=== PATIENT | male | born 1960 | race Caucasian/White ===

== ENCOUNTER 2022-09-13 10:45 | Emergency (ER) | payer SELFPAY ==
[2022-09-13] VITALS (20 sets, daily range): BP systolic 154–194; BP diastolic 95–122; PULSE 80–120; RESP 19–36; TEMP 36.7; O2SAT 94–100; BMI 27.1
--- NOTE | 2022-09-13 13:09 | DI.CT.S_ITS ---
PROCEDURE: CT HEAD/BRAIN WO CON INDICATIONS: fall, head injury, alcohol withdrawal TECHNIQUE: Noncontrast 4.5 mm thick angled axial sections acquired from the foramen magnum to the vertex, with coronal and sagittal reformats. For radiation dose reduction, the following was used: automated exposure control, adjustment of mA and/or kV according to patient size. COMPARISON: None. FINDINGS: Image quality: Excellent. CSF spaces: Basal cisterns are patent. No extra-axial fluid collections. The ventricles are symmetric in size and shape. Brain: No intracranial bleeds or masses. There is cerebral volume loss for age, with resultant ventricular and sulcal prominence. There are periventricular and deep white matter chronic small vessel ischemic changes. There is intracranial internal carotid artery atherosclerosis. Skull and face: Calvarium and visualized facial bones appear intact, without suspicious lesions. Sinuses: Visualized sinuses and mastoids are clear. IMPRESSION: No acute intracranial finding. Dictated by: Naseem Campbell M.D. on 09/13/2022 at 13:54 Approved by: Naseem Campbell M.D. on 09/13/2022 at 13:55
--- NOTE | 2022-09-13 13:14 | ED.ALCOHOL ---
HPI - Alcohol General Chief Complaint: Toxicology Problem Stated Complaint: alcohol detox, not eating Time Seen by Provider: 09/13/22 12:55 Source: patient Mode of arrival: Ambulatory History of Present Illness HPI narrative: 62-year-old male daily smoker with history of hypertension and significant alcohol abuse presents with a friend due to withdrawal type symptoms along with nausea, vomiting and not eating for the past few days. He states that he had historically been taking antihypertensive meds and other medications that he can not completely remember but missed a recent doctor's appointment and therefore has been off his meds for least a week. Started feeling poorly but is very nondescript about his symptoms and developed poor appetite and oral intake and even stops drinking. He states that he typically drinks a 5th of alcohol per day but has not had any in the past 2 days or so because he has been feeling so poorly. He continues to have mild headache, even fell once and struck the right side of his head, he does not remember the specifics of the injury, he does not know if he lost consciousness or not. He denies any blurred vision or trouble with speech. He denies chest pain or shortness of breath. He does have anxiety and agitation as well as some unexplained diaphoresis. He denies auditory or visual hallucinations. He denies tactile hallucinations. He has moderate resting tremor. He is gone through alcohol withdrawal in the past and most recently was in a detox facility about 1 year ago. He states he is never had seizures as a consequence of withdrawal Related Data Previous Rx's Medication Instructions Recorded chlordiazepoxide HCl 25 mg capsule See Rx Instructions .Route 09/13/22 .COMPLEX PRN alcohol withdrawal #32 caps lisinopril 10 mg tablet 10 mg PO DAILY #30 tabs 09/13/22 lisinopril 20 mg tablet 20 mg PO DAILY #30 tabs 09/13/22 metoprolol succinate 100 mg 100 mg PO BID #60 tabs 09/13/22 tablet,extended release 24 hr metoprolol succinate 50 mg 50 mg PO BID #60 tabs 09/13/22 tablet,extended release 24 hr Allergies Allergy/AdvReac Type Severity Reaction Status Date / Time No Known Drug Allergies Allergy Verified 09/13/22 11:32 Review of Systems Review of Systems Narrative: GENERAL: See HPI HEENT: Denies sinus pain, ear pain, sore throat, difficulty swallowing, dizziness. RESPIRATORY: Denies dyspnea, cough, wheezing, hemoptysis, sputum. CARDIOVASCULAR: See HPI, GASTROINTESTINAL: See HPI see HPI : Denies dysuria, frequency, incontinence, hematuria, urinary retention. MUSCULOSKELETAL: denies weakness, joint pain, or bony pain SKIN: Denies rash, skin lesions, or other NEUROLOGIC: See HPI PSYCHIATRIC: No concerning psychosocial issues. 12 point review of systems is negative except for those stated above Patient History Social History Smoking Status: Current every day smoker Smoking Status: Current every day smoker tobacco type: cigarettes alcohol intake frequency: 3 or more drinks per day Alcohol type: hard liquor Substance Use Type: does not use Exam Narrative Exam Narrative: GENERAL: [62] year old patient appears stated age. Well-developed patient, in moderate distress, a bit agitated and anxious HEAD: Superficial abrasion on right side of forehead with dried blood, no other contusions or hematomas, no evidence of depressed skull fracture. EYES: Pupils equal round and reactive. No hyphema Extraocular motions intact. No scleral icterus. No injection or drainage. ENT: Nose without bleeding, purulent drainage. No nasal septal hematoma Throat without erythema, tonsillar hypertrophy or exudate. Airway patent. No malocclusion NECK: Trachea midline. Non tender, no step-offs or crepitance CARDIOVASCULAR: Tachycardic but regular without murmurs, gallops, or rubs. RESPIRATORY: Clear to auscultation. Breath sounds equal bilaterally. No wheezes, rales, or rhonchi. GASTROINTESTINAL: Abdomen soft, non-tender, nondistended. EXTREMITIES: No edema or joint tenderness. Moderate tremor with arms extended BACK: Nontender without deformity or crepitance. No flank tenderness. NEURO: AOx3. SKIN: No rash or erythema of visible areas Initial Vital Signs Initial Vital Signs: Vital Signs Temperature 98.1 F 09/13/22 11:32 Pulse Rate 120 H 09/13/22 11:32 Respiratory Rate 20 09/13/22 11:32 Blood Pressure 194/112 H 09/13/22 11:32 Pulse Oximetry 100 09/13/22 11:32 Oxygen Delivery Method 09/13/22 11:32 Course Orders Ordered: Discontinued Medications Thiamine HCl 200 mg/ Sodium (Chloride) 102 mls @ 408 mls/hr IV NOW ONE Stop: 09/13/22 13:10 Last Infusion: 09/13/22 14:20 Dose: 0 mls/hr Documented By: Admin: 09/13/22 13:56 Dose: 408 mls/hr Documented By: RL Metoprolol Succinate (Metoprolol Er 50 Mg Tablet) 100 mg PO NOW ONE Stop: 09/13/22 15:09 Last Admin: 09/13/22 15:34 Dose: 100 mg Documented By: RL Phenobarbital (Phenobarbital 65 Mg/Ml Vial) 260 mg IV NOW ONE Stop: 09/13/22 13:11 Last Admin: 09/13/22 13:54 Dose: 260 mg Documented By: RL Reevaluation(s) Reevaluation #1: Patient feeling significantly improved after above-stated therapies (notably phenobarb) Vital Signs Vital signs: Vital Signs - 8 hr 09/13/22 11:32 09/13/22 13:07 09/13/22 13:07 Temperature 98.1 F Pulse Rate 120 H 116 H Respiratory Rate 20 Blood Pressure 194/112 H 181/122 H Pulse Oximetry 100 98 Oxygen Delivery Method Room Air 09/13/22 13:15 09/13/22 13:22 09/13/22 13:22 Temperature Pulse Rate 104 H 96 H Respiratory Rate 28 H 29 H Blood Pressure 184/110 H Pulse Oximetry 96 95 Oxygen Delivery Method 09/13/22 13:30 09/13/22 13:31 09/13/22 13:31 Temperature Pulse Rate 99 H 100 H Respiratory Rate 28 H 28 H Blood Pressure 172/113 H Pulse Oximetry 95 95 Oxygen Delivery Method 09/13/22 13:45 09/13/22 14:00 Temperature Pulse Rate 102 H 90 Respiratory Rate 20 Blood Pressure Pulse Oximetry 94 96 Oxygen Delivery Method MDM - Alcohol Lab Data Result diagrams: 09/13/22 12:23 09/13/22 12:23 Labs: Lab Results 09/13/22 09/13/22 09/13/22 Range/Units 12:23 12:23 12:23 WBC 8.7 (4.5-11.0) X10^3/uL RBC 4.75 (4.5-5.9) X10^6/uL Hgb 15.2 (13.5-17.5) g/dL Hct 44.1 (41-53) % MCV 92.8 (80-100) fL MCH 32.0 (26-34) PG MCHC 34.5 (30-36) % RDW 13.8 (11.6-14.8) % Plt Count 85 L (150-400) X10^3/uL Neut % (Auto) 74.5 (50-75) % Lymph % (Auto) 16.6 L (25-40) % [place] % (Auto) 8.2 (3-14) % Eos % (Auto) 0.5 L (2-4) % Baso % (Auto) 0.2 (0-2) % Neut # (Auto) 6500 (7749-5613) /uL Lymph # (Auto) 1400 (4813-0185) /uL [place] # (Auto) 700 (0-900) /uL Eos # (Auto) 0 (0-450) /uL Baso # (Auto) 0 (0-100) /uL Sodium 131 L (137-145) mmol/L Potassium 4.2 (3.4-5.1) mmol/L Chloride 92 L (98-107) mmol/L Carbon Dioxide 12 L (22-32) mmol/L BUN 14 (9-20) mg/dL Creatinine 0.98 (0.66-1.25) mg/dL Estimated GFR > 60 (>60) mL/min BUN/Creatinine Ratio 14.3 (6-22) Glucose 75 L (80-110) mg/dL Calcium 8.8 (8.4-10.2) mg/dL Total Bilirubin 3.3 H (0.2-1.3) mg/dL AST 85 H (17-59) IU/L ALT 53 H (<50) IU/L Alkaline Phosphatase 81 (38-126) U/L Total Protein 8.6 H (6.3-8.2) g/dL Albumin 4.9 (3.5-5.0) g/dL Globulin 3.7 (1.7-4.1) g/dL Albumin/Globulin Ratio 1.3 (1.0-2.8) TSH 1.12 (0.47-4.68) uIU/mL Free T4 1.36 (0.78-2.19) ng/dL Urine RBC (0-5/HPF) Urine WBC (0-5/HPF) Ur Squamous Epith Cells (0-5/HPF) Urine Bacteria (None) Ur Culture Indicated? Salicylates < 1.0 (<20) mg/dL U Opiates 300ng/mL cut (Negative) Ur Oxycodone Screen (Negative) Urine Methadone Screen (Negative) Acetaminophen < 10 (10-30) ug/mL Ur Barbiturates Screen (Negative) U Tricyclic Antidepress (Negative) Ur Phencyclidine Scrn (Negative) Ur Amphetamines Screen (Negative) U Methamphetamines Scrn (Negative) Ur MDMA Scrn (Ecstasy) (Negative) U Benzodiazepines Scrn (Negative) Urine Cocaine Screen (Negative) U Marijuana (THC) Screen (Negative) Ethyl Alcohol < 10 ( - 10) mg/dL SARS-CoV-2 (PCR) (Negative) 09/13/22 09/13/22 09/13/22 Range/Units 13:23 15:25 15:25 WBC (4.5-11.0) X10^3/uL RBC (4.5-5.9) X10^6/uL Hgb (13.5-17.5) g/dL Hct (41-53) % MCV (80-100) fL MCH (26-34) PG MCHC (30-36) % RDW (11.6-14.8) % Plt Count (150-400) X10^3/uL Neut % (Auto) (50-75) % Lymph % (Auto) (25-40) % [place] % (Auto) (3-14) % Eos % (Auto) (2-4) % Baso % (Auto) (0-2) % Neut # (Auto) (0750-7811) /uL Lymph # (Auto) (4282-5748) /uL [place] # (Auto) (0-900) /uL Eos # (Auto) (0-450) /uL Baso # (Auto) (0-100) /uL Sodium (137-145) mmol/L Potassium (3.4-5.1) mmol/L Chloride (98-107) mmol/L Carbon Dioxide (22-32) mmol/L BUN (9-20) mg/dL Creatinine (0.66-1.25) mg/dL Estimated GFR (>60) mL/min BUN/Creatinine Ratio (6-22) Glucose (80-110) mg/dL Calcium (8.4-10.2) mg/dL Total Bilirubin (0.2-1.3) mg/dL AST (17-59) IU/L ALT (<50) IU/L Alkaline Phosphatase (38-126) U/L Total Protein (6.3-8.2) g/dL Albumin (3.5-5.0) g/dL Globulin (1.7-4.1) g/dL Albumin/Globulin Ratio (1.0-2.8) TSH (0.47-4.68) uIU/mL Free T4 (0.78-2.19) ng/dL Urine RBC None seen (0-5/HPF) Urine WBC 0-1/hpf (0-5/HPF) Ur Squamous Epith Cells 0-1 /hpf (0-5/HPF) Urine Bacteria None seen (None) Ur Culture Indicated? Cult not indicated Salicylates (<20) mg/dL U Opiates 300ng/mL cut Negative (Negative) Ur Oxycodone Screen Negative (Negative) Urine Methadone Screen Negative (Negative) Acetaminophen (10-30) ug/mL Ur Barbiturates Screen Negative (Negative) U Tricyclic Antidepress Negative (Negative) Ur Phencyclidine Scrn Negative (Negative) Ur Amphetamines Screen Negative (Negative) U Methamphetamines Scrn Negative (Negative) Ur MDMA Scrn (Ecstasy) Negative (Negative) U Benzodiazepines Scrn Negative (Negative) Urine Cocaine Screen Negative (Negative) U Marijuana (THC) Screen Negative (Negative) Ethyl Alcohol ( - 10) mg/dL SARS-CoV-2 (PCR) Negative (Negative) Point of Care Testing Glucose POC 90 Urine Dip Bedside Urine Glucose Negative Bedside Urine Bilirubin - Negative Bedside Urine Ketone +++ 80 Urine Specific Girard 1.015 Bedside Urine Occult Blood +/- Bedside Urine pH 6.0 Bedside Urine Protein + 30 Bedside Urine Urobilinogen - Negative Bedside Urine Nitrite - Negative Bedside Urine Leukocytes - Negative Esterase Discharge Plan Departure Patient Disposition: Home Clinical Impression: Alcohol withdrawal syndrome, HTN (hypertension) Instructions: High Blood Pressure, DI for Alcohol Use Disorder Activity Restrictions/Additional Instructions: *You have been diagnosed with [hypertension and alcohol withdrawal] *What to do: *Please continue to take your regular medications as directed. [ ] New medication prescriptions sent to your pharmacy: [ ] [x ] New medication written as a paper prescription [ ] No new medications given *Please follow up with your primary care provider in 2-3 days, call for an appointment. Let them know you were seen in the Emergency Department and that we ask that you be seen in follow up. We will electronically transmit a record of today's note if your PCP is in our system *If you do not have a primary care provider please contact the [facility] Resource line at [phone]. They will ask some questions about your medical history and help get you set up with a doctor in the community. *Return to Emergency Department if you should have any new, worsening or concerning symptoms, such as [fever greater than 101 F, shaking chills, worsening pain, persistent vomiting or other bothersome symptoms] Prescriptions: New metoprolol succinate 100 mg tablet extended release 24 hr 100 mg PO BID Qty: 60 0RF lisinopril 10 mg tablet 10 mg PO DAILY Qty: 30 0RF chlordiazepoxide HCl 25 mg capsule See Rx Instructions .ROUTE .COMPLEX PRN (Reason: alcohol withdrawal) Qty: 32 0RF Rx Instructions: Day 1: 50mg POq4 Day 2: 50mg POq6 Day 3: 50mg POq8 Day 4: 50mg POq12 Day 5: 50mg POqhs #32 metoprolol succinate 50 mg tablet extended release 24 hr 50 mg PO BID Qty: 60 0RF lisinopril 20 mg tablet 20 mg PO DAILY Qty: 30 0RF
[2022-09-13 13:38] LABS: Add Manual Diff / Slide Review NO; Basophils Absolute Auto 0 /uL (0-100); Basophils Percent Auto 0.2 % (0-2); Eosinophils Absolute Auto 0 /uL (0-450); Eosinophils Percent Auto 0.5 % (2-4); Hematocrit 44.1 % (41-53); Hemoglobin 15.2 g/dL (13.5-17.5); Lymphocytes Absolute Auto 1400 /uL (1100-4500); Lymphocytes Percent Auto 16.6 % (25-40); Mean Corpuscular HGB Conc 34.5 % (30-36); Mean Corpuscular Volume 92.8 fL (80-100); Monocytes Absolute Auto 700 /uL (0-900); Monocytes Percent Auto 8.2 % (3-14); Neutrophils Absolute Auto 6500 /uL (1500-7000); Neutrophils Percent Auto 74.5 % (50-75); Platelet Count 85 X10^3/uL (150-400); Red Blood Cell Count 4.75 X10^6/uL (4.5-5.9); Red Cell Distribution Width 13.8 % (11.6-14.8); White Blood Cell Count 8.7 X10^3/uL (4.5-11.0)
[2022-09-13 13:49] LABS: Acetaminophen < 10 ug/mL (10-30); Alanine Aminotransferase 53 IU/L (<50); Albumin 4.9 g/dL (3.5-5.0); Albumin Globulin Ratio 1.3 (1.0-2.8); Alkaline Phosphatase 81 U/L (38-126); Aspartate Aminotransferase 85 IU/L (17-59); BUN Creatinine Ratio 14.3 (6-22); Bilirubin Total 3.3 mg/dL (0.2-1.3); Blood Urea Nitrogen 14 mg/dL (9-20); Calcium 8.8 mg/dL (8.4-10.2); Carbon Dioxide 12 mmol/L (22-32); Chloride 92 mmol/L (98-107); Estimated Glomerular Filt Rate > 60 mL/min (>60); Ethanol (ETOH) < 10 mg/dL; Globulin 3.7 g/dL (1.7-4.1); Glucose 75 mg/dL (80-110); HEMOLYSIS < 15 (0-50); Potassium 4.2 mmol/L (3.4-5.1); Salicylate < 1.0 mg/dL (<20); Sodium 131 mmol/L (137-145); Total Protein 8.6 g/dL (6.3-8.2)
[2022-09-13] MEDS: PHENobarbital 65 MG/ML VIAL 260 MG IV (13:54)
[2022-09-13] MEDS: THIAMINE 200 MG in SODIUM CHLORIDE 0.9% 100 ML 408 MG IV (13:56)
--- NOTE | 2022-09-13 13:58 | DI.US.S_ITS ---
PROCEDURE: US ABDOMEN LIMITED INDICATIONS: NAUSEA, ELEVATED BILIRUBIN TECHNIQUE: Real-time focused scanning was performed of the abdomen, with image documentation. COMPARISON: None. FINDINGS: The liver demonstrates enlarged size. The liver demonstrates generalized moderately increased echogenicity. This decreases ultrasound sensitivity for detection of hepatic masses. No findings of gallstones or sludge are seen. The gallbladder wall is not thickened, measuring 3 mm or less. No specific pericholecystic fluid is seen. The sonographic Kim sign is negative. There is no biliary dilatation, the common bile duct measures 4-5 mm. The pancreas is not well seen, secondary to overlying bowel gas. IMPRESSION: Enlarged, fatty liver. The gallbladder demonstrates a normal sonographic appearance. No biliary dilatation is seen. Dictated by: Bud De M.D. on 09/13/2022 at 13:50 Approved by: Bud eD M.D. on 09/13/2022 at 13:51
[2022-09-13 14:04] LABS: Free T4, Direct Thyroxine 1.36 ng/dL (0.78-2.19)
[2022-09-13 14:18] LABS: Thyroid Stimulating Hormone 1.12 uIU/mL (0.47-4.68)
[2022-09-13 14:36] LABS: COVID19 -Nasal RAPID Negative (Negative)
--- NOTE | 2022-09-13 15:18 | PC.NURSE ---
Patient ambulated without difficulty to bathroom.
[2022-09-13] MEDS: METOPROLOL ER 50 MG TABLET 100 MG PO (15:34)
[2022-09-13 15:49] LABS: UR Morphine/Opiate cutoff 300 Negative (Negative); Ur Creatinine Normal (Normal); Ur Specific Gravity Normal (Normal); Urine Amphetamines Negative (Negative); Urine Barbiturates Negative (Negative); Urine Benzodiazepines Negative (Negative); Urine Cocaine Negative (Negative); Urine MDMA Negative (Negative); Urine Methadone Negative (Negative); Urine Methamphetamines Negative (Negative); Urine Oxycodone Negative (Negative); Urine Phencyclidine Negative (Negative); Urine Tetrahydrocannabinol Negative (Negative); Urine Tricyclic Antidepressant Negative (Negative); Urine pH Normal (Normal)
[2022-09-13 16:03] LABS: Bacteria Urine None Seen; Culture Indicated Urine Cult Not Indicated; RBC Urine None Seen (0-5/HPF); Squamous Epithelial Cell Urine 0-1 /HPF (0-5/HPF); WBC Urine 0-1/HPF (0-5/HPF)
--- NOTE | 2022-09-13 17:46 | CM.SWNOTE ---
LOGISTICIAN Assessment Note Patient is 62 y/o male who presents to ED due to concern for ETOH withdrawals. Patient reports his last drink was Friday, patient endorses hx of drinking 1/5 of hard alcohol throughout five days. Patient endorses he has been on a alcohol sorensen and typically is fine after 3-4 days but patient endorses more recent difficulties with withdrawal. Patient states he has not eaten or slept in quite some time. Patient has no PCP listed and patient has [employer] [facility] insurance. Patient endorses hx of Cardio Myopathy and states that he started blood pressure medication but has not been taking it. Patient endorses he has been staying at the [facility] for the last 2.5 weeks and plans to stay in hotels until he has to go to [place] in early October 2022 for his job, and plans to go to [place] in November. patient endorses that he does not drink when he is working. LOGISTICIAN discusses Detox options but states that there are currently no beds at this time for medical detox, patient denies need to wait for that. LOGISTICIAN discusses option for outpatient services but patient denies need. Patient denies SI and HI. Patient endorses that he was scared and paranoid when he was withdrawing earlier. Patient endorses that his friend Bill that he just met who has been staying that [facility] brought him into the ED. Prior to meeting with patient, registration requests that LOGISTICIAN meet with patient's friend Bill. Bill endorses concern for patient's MH and ETOH use. Bill endorses he just met patient 10 days ago and patient does not have any family supports. Bill reports concern that patient has lost money, is not taking his medication and has not eaten in days. LOGISTICIAN provides patient with list of hotels in the area and list of local shelters. Patient is able to ambulate independently and care for all ADLs. Per ED provider Dr. Soctt, patient is medically clear for d/c and Dr. Scott provides rx for patient's blood pressure medication. It is the opinion of this LOGISTICIAN that patient is safe to d/c to community. Plan: patient to d/c to community, to continue to stay in hotel or alf until his job starts in October. Patricia Blackman PEDIATRICIAN/MEDICAL DOCTOR
== END 2022-09-13 16:38 | disposition home or self-care (01) ==
PROVIDERS: Emergency Provider Emergency Medicine
DX: F10.239 Alcohol dependence with withdrawal, unspecified (principal); I10 Essential (primary) hypertension; R00.0 Tachycardia, unspecified; R11.2 Nausea with vomiting, unspecified; R25.1 Tremor, unspecified; Z79.899 Other long term (current) drug therapy; Z20.822 Contact with and (suspected) exposure to COVID-19
CPT/HCPCS: 36415; 70450; 76705; 80053; 80305; 80320; 80329; 81003; 81015; 82962; 84439; 84443; 85025; 87635; 96374; 99285; C9803; G0480; J2560